=== PATIENT | female | born 1950 | race Caucasian/White ===

== ENCOUNTER 2023-11-05 06:20 | Inpatient (IN) | payer OTHER ==
[2023-11-05] VITALS (13 sets, daily range): BP systolic 103–127; BP diastolic 56–71; PULSE 68–94; RESP 16–18; TEMP 97.2–98.2; O2SAT 90–100
[~2023-11-05] VITALS: Ht 170.2 cm; Wt 90.0 kg
[~2023-11-05 06:20] MED LIST: ATEN50TA80 PO; ATO40T PO; BUPR-133 PO; CHOLCAP4 PO; HYDR25TA5 PO; LAMO150T26 PO; MULT-1018 OR; NUTRTAB41 OR; POTA1TAB61 PO; VITA400T4 PO
[2023-11-05] MEDS: TRANEXAMIC ACID 20 ML ONE (06:33)
[2023-11-05] MEDS: ceFAZolin 2 GM/D5W50ml 50 ML IV ONE (06:39)
[2023-11-05] MEDS: TETRACAINE 1% INJ 2 ML VIAL IJ ONE (06:54)
[2023-11-05] MEDS ORDERED: MIDAZOLAM HCL 2MG/2ML 2ml VIAL (1mg/ml) ONE (07:09)
[2023-11-05] MEDS ORDERED: fentaNYL CITRATE 100 MCG/2 ML VL ONE (07:09)
[2023-11-05] MEDS ORDERED: KETAMINE 50mg/ML 1ml syringe ONE ×2 (07:09→07:50)
[2023-11-05] MEDS ORDERED: GLYCOPYRROLATE 0.2 MG/ML 1ML VIAL ONE (07:11)
[2023-11-05] MEDS ORDERED: KETOROLAC TROMETH 30 MG/ML 1ML VIAL ONE ×2 (07:11→08:09)
[2023-11-05] MEDS ORDERED: ONDANSETRON HCL 4 MG/2 ML VIAL ONE (07:11)
[2023-11-05] MEDS ORDERED: ePHEDrine SULFATE 50 MG/ML AMP ONE (07:11)
[2023-11-05] MEDS ORDERED: MORPHINE SULF PF 5 MG/10 ML VIAL ONE (07:12)
[2023-11-05] MEDS ORDERED: DexAMETHasone SOD PHOS 10MG/1ML VIAL INJ ONE (08:09)
[2023-11-05] MEDS ORDERED: PROPOFOL 10 MG/ML 20 ML IV ONE (08:09)
[2023-11-05] MEDS: VANCOMYCIN HCL 1000 MG VL ONE (08:14)
[2023-11-05] MEDS ORDERED: diphenhdrAMINE HCL 50 MG/1 ML VL IV PRN (09:45)
[2023-11-05] MEDS ORDERED: NALOXONE HCL 0.4 MG/ML VIAL IV PRN (09:45)
[2023-11-05] MEDS ORDERED: ONDANSETRON HCL 4 MG/2 ML VIAL IV PRN (09:45)
[2023-11-05] MEDS ORDERED: DexAMETHasone SOD PHOS 10MG/1ML VIAL INJ IV PRN (09:45)
[2023-11-05] MEDS ORDERED: BISACODYL 5 MG EC TAB PO PRN (10:15)
[2023-11-05] MEDS: LACTATED RINGER'S 1,000 ML IV SCH (10:15)
[2023-11-05] MEDS ORDERED: NITROGLYCERIN 0.4 MG SL TAB SL PRN (10:15)
[2023-11-05] MEDS: ceFAZolin 1GM/50ML 50 ML IV SCH (10:15)
[2023-11-05] MEDS ORDERED: ACETAMINOPHEN 325 MG TAB PO PRN (10:15)
[2023-11-05] MEDS: CLINDAMYCIN 600MG IV 50 ML IV SCH (12:41)
[2023-11-05] MEDS: DOCUSATE SOD 100 MG CAP PO SCH (22:18)
[2023-11-06] VITALS (17 sets, daily range): BP systolic 109–137; BP diastolic 60–82; PULSE 65–90; RESP 15–22; TEMP 97.5–98; O2SAT 91–100
[2023-11-06] MEDS: KETOROLAC TROMETH 30 MG/ML 1ML VIAL IV PRN (02:41)
[2023-11-06 06:38] LABS: Hemoglobin 10.9 g/dL (12.2-16.2)
[2023-11-06] MEDS: HYDROcodone-ACET 5/325MG TAB PO PRN (08:39)
[2023-11-06] MEDS: ENOXAPARIN SOD 40 MG/0.4 ML SYRINGE SC SCH (09:56)
[2023-11-06] MEDS: oxyCODONE ER 10 MG TAB PO SCH (09:56)
[2023-11-06] MEDS: MORPHINE SULFATE INJ 2 MG/ml SYRG IV PRN (18:12)
[2023-11-07] VITALS (7 sets, daily range): BP systolic 123–133; BP diastolic 66–81; PULSE 72–126; RESP 16–66; TEMP 36.7; O2SAT 94–100
[2023-11-07 05:28] LABS: Hematocrit 30.3 % (36.0-46.0); Hemoglobin 10.3 g/dL (12.2-16.2)
[2023-11-07] MEDS: PNEUMOCOCCAL VACC POLYS 25 MCG/0.5 ML VIAL IM ONE (13:30)
[2023-11-07] MEDS ORDERED: HYDR-4902 PO (14:49)
[2023-11-07] MEDS ORDERED: RIVA10TA PO (14:49)
[2023-11-07] MEDS ORDERED: SENN-105 PO (14:49)
[2023-11-07] MEDS ORDERED: NALO4SPR2 (14:51)
[2023-11-07] MEDS ORDERED: SENNA 8.6 MG TAB PO SCH (22:00)
== END 2023-11-07 17:17 | disposition home health service (06) | DRG 470 ==
LOC: SUR 06:20 → TELE 10:04 → TELE-CENTR 11:40
PROVIDERS: ADMIT Orthopaedic Surgery; ATTEND Hospitalist
PROC: 0SRC0J9 Replacement of Right Knee Joint with Synthetic Substitute, Cemented, Open Approach (ICD-10-PCS; principal; 2023-11-05 07:28)
DX: M17.0 Bilateral primary osteoarthritis of knee (principal); Z68.31 Body mass index [BMI] 31.0-31.9, adult; E66.9 Obesity, unspecified; F32.9 Major depressive disorder, single episode, unspecified; E78.00 Pure hypercholesterolemia, unspecified; Z82.49 Family history of ischemic heart disease and other diseases of the circulatory system; Z82.0 Family history of epilepsy and other diseases of the nervous system; Z79.891 Long term (current) use of opiate analgesic; Z79.899 Other long term (current) drug therapy
CPT/HCPCS: 36415; 73562; 85014; 85018; 86850; 86900; 86901; 97110; 97116; 97163; 97530; G0378; J1100; J1885; J2250; J2405; J2704; J3490

== ENCOUNTER 2024-08-10 10:12 | Inpatient (IN) | payer OTHER ==
[~2024-08-10] VITALS: Ht 165.1 cm; Wt 84.5 kg
[2024-08-10] VITALS (10 sets, daily range): BP systolic 108–134; BP diastolic 71–89; PULSE 67–78; RESP 16–19; TEMP 97.5–97.8; O2SAT 90–97
[2024-08-10] MEDS: TETRACAINE 1% INJ 2 ML VIAL IJ ONE (10:00)
[~2024-08-10 10:12] MED LIST changes: -ATO40T PO; +ATOR-507 PO; +DexAMETHasone SOD PHOS 10MG/1ML VIAL INJ ONE; +LIDOCAINE 1% INJ PF 5ML AMP ONE; +MIDAZOLAM HCL 2MG/2ML 2ml VIAL (1mg/ml) ONE; +MORPHINE SULF PF 5 MG/10 ML VIAL ONE; +ONDANSETRON HCL 4 MG/2 ML VIAL ONE; +POTA-215 PO; -POTA1TAB61 PO; +PROPOFOL 10 MG/ML 20 ML IV ONE; +SODIUM CHLORIDE LOCK 10 ML ONE; -VITA400T4 PO; +fentaNYL CITRATE 100 MCG/2 ML VL ONE
[2024-08-10] MEDS: TRANEXAMIC ACID 20 ML ONE (10:32)
[2024-08-10] MEDS: ceFAZolin 2 GM/D5W100ml 100 ML IV ONE (11:41)
[2024-08-10] MEDS: CEFEPIME 1GM/ 50ML 50 ML IV ONE (11:41)
[2024-08-10] MEDS: ROPIVACAINE 0.5% (5MG/ML) 20ML AMPULE IJ ONE ×2 (12:20→13:36)
[2024-08-10] MEDS: EPINEPHrine HCL 1 MG/1 ML AMP ONE (12:20)
[2024-08-10] MEDS: VANCOMYCIN HCL 1000 MG VL ONE (12:20)
[2024-08-10] MEDS ORDERED: PROPOFOL 10 MG/ML 20 ML IV ONE (12:45)
[2024-08-10] MEDS: METOCLOPRAMIDE HCL 5MG/ml INJ 2ml VIAL IV ONE (13:15)
[2024-08-10] MEDS ORDERED: NALOXONE HCL 0.4 MG/ML VIAL IV PRN (13:15)
[2024-08-10] MEDS ORDERED: HYDROmorphone HCL 2 MG/ML VL/or syr IV PRN ×2 (13:15)
[2024-08-10] MEDS ORDERED: diphenhdrAMINE HCL 50 MG/1 ML VL IV PRN (13:15)
[2024-08-10] MEDS: KETOROLAC TROMETH 30 MG/ML 1ML VIAL IV ONE (13:15)
[2024-08-10] MEDS ORDERED: fentaNYL CITRATE 100 MCG/2 ML VL IV PRN (13:15)
[2024-08-10] MEDS ORDERED: MORPHINE SULFATE INJ 2 MG/ml SYRG IV PRN (13:15)
[2024-08-10] MEDS ORDERED: oxyCODONE HCL 5MG TAB PO PRN ×2 (13:30)
[2024-08-10] MEDS ORDERED: ACETAMINOPHEN 325 MG TAB PO PRN (13:30)
--- NOTE | 2024-08-10 13:34 | DVHOP2 ---
Operative Report - 2 Report Details Date: 08/10/24 Preop Diagnosis: Left knee degenerative arthritis Postop Diagnosis: Same Surgeon: Zulema Hurley MD Psychological Science Professor: Katrin PERDUE Anesthesiologist: Unruly Anesthesia: Local, Regional Drains: Juan Carlos closed wound suction Implant: DonJoy in power knee size eight femur PS, size seven tibial base plate, size 12 polyethylene, size 29 patella Consent: The patient was informed of the risks and benefits of the procedure. These include but are not limited to complications of anesthesia, postoperative infection, incomplete relief of symptoms, recurrence of symptoms, damage to blood vessels, nerves and tendons, deep venous thrombosis, pulmonary embolism and possible need for repeat surgery in the future. Complications: None Estimated Blood Loss: 75 cc Fluids: See anesthesia record Findings: Varus deformity, osteophytes, denuded cartilage and eburnated bone Indications for Surgery: Left knee degenerative arthritis with severe pain and functional impairment despite nonoperative Name of Procedure Performed Left total knee arthroplasty Procedure Details Procedure Details: The patient was brought to the operating room and placed on the table in the supine position after being given spinal anesthetic with adequate analgesia obtained. Surgical timeout was performed verifying patient, laterality and procedure Preop patient received IV IV Ancef, cefepime and IV tranexamic acid. Tourniquet was applied to the lower extremity. Extremity was elevated, exsanguinated Esmarch, and tourniquet inflated. Lower extremity was prepped and draped in sterile fashion. Midline incision was made followed by medial arthrotomy. I exposed the anterior medial and lateral tibial plateau and the anterior distal femur. Bovie and aqua mantis were used for hemostasis. I excised the anterior meniscal tissue with Bovie. [ I excised the anterior cruciate ligament with Bovie.] I excised a portion of the fat pad with Bovie. The patella was everted and the knee flexed. I drilled the distal femur and suctioned the hole to reduce the risk of fat emboli. I inserted intramedullary guide with 5 degree valgus setting. I pinned the distal femoral cutting block anteriorly. Intramedullary nataly was removed. Distal femoral cut was made and the block removed. I brought my attention to the tibia setting up the external cutting jig for the tibia paying attention to slope, rotation and varus valgus alignment. I set the depth and pinned the block. I used the external alignment nataly to aid in checking alignment. Bone cut was made and bone removed releasing soft tissue attachments with Bovie. Cutting block removed. I then checked the extension gap and deemed adequate and removed the femur and tibia pins. I flexed the knee and applied the femoral sizing guide to the femur. I checked the size and external rotation setting at 90 degrees to Whitesides line and checking the epicondylar axis. I drilled the holes then removed the sizing guide and pin. I then tapped on the 4 in 1 cutting block and checked with the steve wing anteriorly to make sure that I would not notch then pinned the block. Cuts were made and the block and pins were removed. Bone was removed with curved osteotome. I used a rongeur to remove any remaining osteophytes at the femur and tibia. I then used a lamina loss mitigation specialist to open up the back alternating between the medial and lateral side. Any remaining meniscal tissue was excised with scalpel. I used curved osteotome, curette and rongeur to remove any post erior osteophytes. [I injected a total of 20 cc of 0.5% ropivacaine into the posterior capsule to facilitate the planned adductor block.] I prophylactically coagulated with aqua mantis. I then applied the template for the box cut which was pinned. Box cut made and bone removed. Template and pins removed I then tapped on the femoral trial. I then brought my attention back to the tibia sizing it. I used the external alignment nataly to make sure that rotation and alignment were good. I made a Bovie lucinda at the tibial tray lucinda identifying rotation for later use. I pinned the tray and used the reamer and keel punch. I tried various tibial polytrials until I was satisfied. [I then brought my attention to the patella. I sequentially dissected soft tissue with Bovie. I checked the thickness with caliper. I set the appropriate depth of cut on the cutting guide. I attached the cutting guide made my cut. I then sized the patella and made my drill holes. I then placed the patella trial with appropriate depth based on overall precut thickness. ] The patella tracked nicely without thumb pressure. I removed the trials. The implants were brought into the field while bone preparation was started. I used both normal saline irrigation and the CarboJet to prepare the bone. Once cement was ready I applied cement to the tibial implant and tibial bone tapped it on and removed excess cement in usual fashion. In similar fashion I tapped on the femoral implant. I inserted the trial polyethylene and brought the knee into 30 degrees flexion. [I then applied the patella implant in similar fashion holding pressure with the pressurization device.] I irrigated with xperience irrigant. Once cement cured, I checked stability and range of motion as well as patella tracking. tourniquet was released and hemostasis maintained with aqua mantis. I inserted the polyethylene and again checked stability. I used a 2 grams of vancomycin half of which was placed deep and half superficial. I repaired the extensor mechanism with the knee in flexion with #1 Ethibond interrupted [id number]. Deep subcutaneous tissue was closed with 0 Vicryl. Superf icial subcutaneous tissue was closed with 2-0 vicryl interrupted. Skin was closed with samson. I then applied the [juan carlos closed wound suction]. Patient tolerated the procedure well and was brought to recovery room in stable condition. Condition Stable Disposition Still a Patient ZULEMA HURLEY MD Aug 10, 2024 13:34
[2024-08-10] MEDS ORDERED: ceFAZolin 2 GM/D5W50ml 50 ML IV SCH (14:00)
--- NOTE | 2024-08-10 14:37 | DVH ---
CLINICAL INFORMATION: Postop left total knee arthroplasty. TECHNIQUE: 2 views of the left knee were obtained. COMPARISON: No prior imaging of the left knee was available for comparison at the time of dictation. FINDINGS: Postsurgical changes of left total knee arthroplasty with cemented femoral and tibial compo nents. The prosthesis is in satisfactory alignment and position. Soft tissue swelling and gas within the soft tissues adjacent to the surgical site consistent with recent postoperative changes. Cutaneou s samson overlie the anterior aspect of the left knee. IMPRESSION: Postsurgical changes of left total knee arthroplasty in satisfactory alignment and position as descri bed above.
[2024-08-10] MEDS: D5W/LACTATED RINGERS 1,000 ML IV SCH (17:00)
[2024-08-10] MEDS: ACETAMINOPHEN 325 MG TAB PO SCH (18:26)
[2024-08-10] MEDS: KETOROLAC TROMETH 30 MG/ML 1ML VIAL IV SCH (18:26)
[2024-08-10] MEDS: ceFAZolin 2 GM/D5W50ml 50 ML IV SCH (20:25)
[2024-08-10] MEDS: ATORVASTATIN 20 MG TAB PO SCH (21:00)
[2024-08-10] MEDS: PREGABALIN 25 MG CAP PO SCH (21:00)
[2024-08-11] VITALS (15 sets, daily range): BP systolic 91–146; BP diastolic 59–82; PULSE 60–104; RESP 15–19; TEMP 97.7–98.3; O2SAT 74–99
[2024-08-11 09:34] LABS: Basophils # (auto) 0 10 ^3/uL (0-0.2); Basophils % (auto) 0.2 % (0.0-2.0); Eosinophils # (auto) 0 10 ^3/uL (0-0.8); Eosinophils % (auto) 0.2 % (0.0-7.0); Hematocrit 39.1 % (36.0-46.0); Hemoglobin 13.4 g/dL (12.2-16.2); Lymphocytes # (auto) 0.9 10 ^3/uL (0.4-5.4); Lymphocytes % (auto) 13.9 % (10.0-50.0); Mean Corpuscular Hemoglobin 30.8 pg (28.0-32.0); Mean Corpuscular Hgb Conc. 34.2 g/dL (32.0-36.0); Mean Corpuscular Volume 90.1 fL (80.0-100.0); Monocytes # (auto) 0.5 10 ^3/uL (0-1.3); Monocytes % (auto) 7.9 % (0.0-12.0); Neutrophils # (auto) 4.9 10 ^3/uL (1.6-8.6); Neutrophils % (auto) 77.8 % (37.0-80.0); Platelet Count (auto) 206 10^3/uL (140-450); Red Blood Cells 4.34 10^6/uL (4.0-5.20); Red Cell Distribution Width 12.9 % (11.8-14.3); White Blood Cell 6.3 10^3/uL (4.4-10.8)
[2024-08-11 09:40] LABS: Anion Gap 4 (5-15); Carbon Dioxide 32 mmol/L (20-31); Chloride 101 mmol/L (98-107); Potassium 4.1 mmol/L (3.5-5.1); Sodium 137 mmol/L (136-145)
[2024-08-11 09:41] LABS: Calcium 9.6 mg/dL (8.7-10.4)
[2024-08-11 09:46] LABS: BUN/Creatinine Ratio 13.1 (10.0-20.0); Blood Urea Nitrogen 13 mg/dL (9-23); Glucose 187 mg/dL (74-106)
[2024-08-11] MEDS ORDERED: LAMOTRIGINE 150 MG PO SCH (10:00)
[2024-08-11] MEDS ORDERED: ATENOLOL 50 MG PO SCH (10:00)
[2024-08-11] MEDS ORDERED: POTASSIUM CHLORIDE 10 MEQ PO SCH (10:00)
[2024-08-11] MEDS ORDERED: PATIENTS OWN MEDICATION (Atorvastatin Calcium (Lipitor) 40 MG) PO SCH (10:00)
[2024-08-11] MEDS: lamoTRIgine 100 MG TAB PO SCH (10:10)
[2024-08-11] MEDS: ASPirin 81 mg TAB PO SCH (10:11)
[2024-08-11] MEDS: ATENOLOL 25 MG TAB PO SCH (10:11)
[2024-08-11] MEDS: POTASSIUM CHL 10 Meq TABLET PO SCH (10:12)
[2024-08-11] MEDS: hydroCHLOROthiazide 25 MG TAB PO SCH (10:12)
--- NOTE | 2024-08-11 13:23 | DVHINCON2 ---
Date Seen: Aug 11, 2024 Referring Physician Orthopedic surgeon. Reason for Consultation Medical management. History of Present Illness 74-year-old female with a known history of hypertension, dyslipidemia, previous history of right coronary arthroplasty, with status post total abdominal hy sterectomy, bilateral breast reduction surgery, brought in for elective surgery for left knee degenerative joint disease . Patient denies any known cardiac history, does have known history of hypertension dyslipidemia. Currently complaining of minimal pain in the left knee has not walked with the physical therapy yet. Past Medical History Hypertension Dyslipidemia Past Surgical History Bilateral breast reduction surgery Total hysterectomy Right total knee arthroplasty Bilateral foot surgery multiple Now status post left total knee arthroplasty Family History: Cardiovascular disease G8 FATHER FH: Parkinson's disease G8 MOTHER Allergies: Coded Allergies: NO KNOWN ALLERGIES (Unverified , 08/06/24) Home Meds Reported Medications Cholecalciferol (D3-50) 50,000 Unit Cap, 68226 UNIT PO Q7D, CAP 10/30/23 Nutritional Supplements (Estroven) Tab, 1 TAB OR DAILY, TAB 10/30/23 Multiple Vitamin (Multivitamins) Tab, 1 TAB OR DAILY, TAB 10/30/23 Lamotrigine (Lamotrigine) 150 Mg Tab, 150 MG PO DAILY, TAB 10/30/23 Bupropion Hcl (Bupropion Hcl Er) 150 Mg Tab, 150 MG PO BID, TAB 10/30/23 Potassium Chloride (Klor-Con M10) 10 Meq Tab, 10 MEQ PO DAILY, TAB 10/30/23 Hctz (Hydrochlorothiazide) 25 Mg Tab, 25 MG PO DAILY, TAB 10/30/23 Atorvastatin Calcium (Lipitor) 40 Mg Tab, 40 MG PO DAILY, TAB 10/30/23 Atenolol (Tenormin) 50 Mg Tab, 50 MG PO DAILY, TAB 10/30/23 Current Medications Current Medications Medications (Trade) Dose Ordered Sig/Ayanna Route PRN Reason Start Time Stop Time Status Last Admin Hydrochlorothiazide (hydroCHLOROthiazide TABLET) 25 mg DAILY PO 08/11/24 10:00 08/11/24 10:12 Patient Own Medication 50 mg DAILY PO 08/11/24 10:00 Cancel Patient Own Medication 40 mg DAILY PO 08/11/24 10:00 Cancel Patient Own Medication 150 mg BID PO 08/10/24 22:00 08/11/24 10:12 Patient Own Medication 150 mg DAILY PO 08/11/24 10:00 08/10/24 14:00 DC Patient Own Medication 10 meq DAILY PO 08/11/24 10:00 08/10/24 14:27 DC Dextrose/Lactated Ringer's 1,000 ml @ 100 mls/hr Q10H IV 08/10/24 13:30 08/11/24 01:40 Acetaminophen (Tylenol Tablet) 650 mg Q4HP PRN PO MILD PAIN (1-3 PAIN SCALE) 08/10/24 13:30 Cefazolin Sodium/ Dextrose 50 ml @ 50 mls/hr Q8HR IV 08/10/24 14:00 08/10/24 15:14 DC Acetaminophen (Tylenol Tablet) 650 mg Q6HR PO 08/10/24 18:00 08/11/24 12:07 Ketorolac Tromethamine (Toradol Injection) 15 mg Q6HR IV 08/10/24 18:00 08/15/24 17:59 08/11/24 12:06 Pregabalin (Lyrica Capsule) 50 mg BID PO 08/10/24 22:00 08/11/24 10:10 Oxycodone HCl 5 mg Q4HP PRN PO MODERATE PAIN (4-6 PAIN SCALE) 08/10/24 13:30 Oxycodone HCl 10 mg Q4HP PRN PO SEVERE PAIN (7-10 PAIN SCALE) 08/10/24 13:30 Aspirin 81 mg BID PO 08/11/24 10:00 08/11/24 10:11 Atenolol (Tenormin Tablet) 50 mg DAILY PO 08/11/24 10:00 08/11/24 10:11 Atorvastatin Calcium (Lipitor) 40 mg HS PO 08/10/24 22:00 08/10/24 21:00 Potassium Chloride (Klor-Con Tablet) 10 meq DAILY PO 08/11/24 10:00 08/11/24 10:12 Lamotrigine (LaMICtal TABLET) 150 mg DAILY PO 08/11/24 10:00 08/11/24 10:10 Cefazolin Sodium/ Dextrose 50 ml @ 50 mls/hr Q8H IV 08/10/24 20:00 08/11/24 04:59 DC 08/11/24 03:24 Review of Systems 12 review of system were negative except mentioned above. 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2 0.0-7.0 % Basophils (%) (Auto) 0.2 0.0-2.0 % Neutrophils # (Auto) 4.9 1.6-8.6 10 ^3/uL Lymphocytes # (Auto) 0.9 0.4-5.4 10 ^3/uL Monocytes # (Auto) 0.5 0-1.3 10 ^3/uL Eosinophils # (Auto) 0 0-0.8 10 ^3/uL Basophils # (Auto) 0 0-0.2 10 ^3/uL Nucleated Red Blood Cells 0.0 % Sodium Level 137 136-145 mmol/L Potassium Level 4.1 3.5-5.1 mmol/L Chloride Level 101 98-107 mmol/L Carbon Dioxide Level 32 H 20-31 mmol/L Anion Gap 4 L 5-15 Blood Urea Nitrogen 13 9-23 mg/dL Creatinine 0.99 0.550-1.02 mg/dL Glomerular Filtration Rate Calc 60 >90 mL/min BUN/Creatinine Ratio 13.1 10.0-20.0 Serum Glucose 187 H 74-106 mg/dL Calcium Level 9.6 8.7-10.4 mg/dL Assessment 73-year-old female with a known history of hypertension, dyslipidemia who had elective surgery for left knee degenerative joint disease status post left total knee arthroplasty. 1. Hypertension controlled 2. Dyslipidemia 3. Status post left total knee arthroplasty for DJD of left knee postop day one. -continue pain meds as needed, PT evaluation and treatment -resume home medications. -discharge plan per Orthopedics. Plan discussed with: Patient, Other Date of Service: Aug 11, 2024 Billing Provider: ZAKIYA MONROY MD Common Visit Codes: NOT BILLABLE ZAKIYA MONROY MD Aug 11, 2024 13:23
--- NOTE | 2024-08-11 15:16 | DVHDS2 ---
Discharge Summary Date of Admission Aug 10, 2024 at 13:28 Date of Discharge: Aug 11, 2024 Labs/Diagnostic Data: Laboratory Results Test 08/11/24 09:04 White Blood Count 6.3 10^3/uL (4.4-10.8) Red Blood Count 4.34 10^6/uL (4.0-5.20) Hemoglobin 13.4 g/dL (12.2-16.2) Hematocrit 39.1 % (36.0-46.0) Mean Corpuscular Volume 90.1 fL (80.0-100.0) Mean Corpuscular Hemoglobin 30.8 pg (28.0-32.0) Mean Corpuscular Hemoglobin Concent 34.2 g/dL (32.0-36.0) Red Cell Distribution Width 12.9 % (11.8-14.3) Platelet Count 206 10^3/uL (140-450) Mean Platelet Volume 6.5 fL (6.9-10.8) Neutrophils (%) (Auto) 77.8 % (37.0-80.0) Lymphocytes (%) (Auto) 13.9 % (10.0-50.0) Monocytes (%) (Auto) 7.9 % (0.0-12.0) Eosinophils (%) (Auto) 0.2 % (0.0-7.0) Basophils (%) (Auto) 0.2 % (0.0-2.0) Neutrophils # (Auto) 4.9 10 ^3/uL (1.6-8.6) Lymphocytes # (Auto) 0.9 10 ^3/uL (0.4-5.4) Monocytes # (Auto) 0.5 10 ^3/uL (0-1.3) Eosinophils # (Auto) 0 10 ^3/uL (0-0.8) Basophils # (Auto) 0 10 ^3/uL (0-0.2) Nucleated Red Blood Cells 0.0 % Sodium Level 137 mmol/L (136-145) Potassium Level 4.1 mmol/L (3.5-5.1) Chloride Level 101 mmol/L (98-107) Carbon Dioxide Level 32 mmol/L (20-31) Anion Gap 4 (5-15) Blood Urea Nitrogen 13 mg/dL (9-23) Creatinine 0.99 mg/dL (0.550-1.02) Glomerular Filtration Rate Calc 60 mL/min (>90) BUN/Creatinine Ratio 13.1 (10.0-20.0) Serum Glucose 187 mg/dL (74-106) Calcium Level 9.6 mg/dL (8.7-10.4) Other Laboratory Tests 08/11/24 09:04 Brief Hx & Hospital Course: Patient was brought to the hospital yesterday to undergo a left total knee arthroplasty. She tolerated the procedure well without complications and was kept overnight for postoperative observation. She has remained medically stable denying any overnight events and reports that she was able to get up and walk with the help of physical therapy and her walker and was able to get down the rai around the nurses station and back to her room with only mild pain. Patient is otherwise feeling well denying any complaints or concerns during my evaluation would like to go home. Condition at Discharge: Stable Final Diagnosis/Problems List Same Discharge Disposition: Home Discharge Instruct/Medications Diet: Regular Activity: See Comment Activity comment: Advised patient to remain weight-bearing as tolerated with the assistance of a walker Follow Up/Referral: Patient instructed to follow up with our office in 10-14 days. Medications: Rx sent via our outpatient EMR system Discharge Statement: "Patient was advised to return to the ER or call 911 if any headaches, dizziness, shortness of breath, chest pain, abdominal pain, bleeding, fevers, or worsening of medical condition. Patient was counseled about treatment plan, medications, possible side effects, patientverbalized understanding. All questions were answered to the best of my ability. This discharge took greater then 30 minutes in planning, reviewing documentation, counseling the patient, and discussing with other team members." ASSESSMENT ASSESSMENT Assessment Same MARIFER SCOTT Aug 11, 2024 15:16
--- NOTE | 2024-08-11 15:18 | DVHPN2 ---
Progress Note - Dictate Date Seen: Aug 11, 2024 Medical Necessity Reason Pt with a Central, PICC or Fol: No Subjective Patient was lying comfortably in bed during my evaluation reports some postoperative knee pain that is being well managed with the help of pain medication. Patient reports that she was able to get up and walk with the help of physical therapy and her walker and was able to get down the rai around the nurses station and back to her bed with only mild pain. Patient is otherwise feeling well denying any other complaint or concern during my evaluation and would like to go home. vital signs Vital Sign Date Time Temp Pulse Resp B/P (MAP) Pulse Ox O2 Delivery O2 Flow Rate FiO2 08/11/24 13:22 98.3 72 19 127/82 (97) 91 98.3 08/11/24 08:00 Room Air* 0 21 Total Intake and Output 08/10/24 08/10/24 08/11/24 15:00 23:00 07:00 Intake Total 470 ml 50 ml 1260 ml Balance 470 ml 50 ml 1260 ml medications Current Medications Medications Dose Ordered Sig/Ayanna Route Start Time Stop Time Status Last Admin Dose Admin Diphenhydramine HCl 25 mg Q4HP PRN IV 08/10/24 13:15 Hydrochlorothiazide 25 mg DAILY PO 08/11/24 10:00 08/11/24 10:12 25 MG Patient Own Medication 50 mg DAILY PO 08/11/24 10:00 Cancel Patient Own Medication 40 mg DAILY PO 08/11/24 10:00 Cancel Patient Own Medication 150 mg BID PO 08/10/24 22:00 08/11/24 10:12 150 MG Dextrose/Lactated Ringer's 1,000 ml @ 100 mls/hr Q10H IV 08/10/24 13:30 08/11/24 01:40 100 MLS/HR Acetaminophen 650 mg Q4HP PRN PO 08/10/24 13:30 Acetaminophen 650 mg Q6HR PO 08/10/24 18:00 08/11/24 12:07 650 MG Ketorolac Tromethamine 15 mg Q6HR IV 08/10/24 18:00 08/15/24 17:59 08/11/24 12:06 15 MG Pregabalin 50 mg BID PO 08/10/24 22:00 08/11/24 10:10 50 MG Oxycodone HCl 5 mg Q4HP PRN PO 08/10/24 13:30 Oxycodone HCl 10 mg Q4HP PRN PO 08/10/24 13:30 Aspirin 81 mg BID PO 08/11/24 10:00 08/11/24 10:11 81 MG Atenolol 50 mg DAILY PO 08/11/24 10:00 08/11/24 10:11 50 MG Atorvastatin Calcium 40 mg HS PO 08/10/24 22:00 08/10/24 21:00 40 MG Potassium Chloride 10 meq DAILY PO 08/11/24 10:00 08/11/24 10:12 10 MEQ Lamotrigine 150 mg DAILY PO 08/11/24 10:00 08/11/24 10:10 150 MG objective A&O x4 in no acute distress Knee range of motion grossly limited with pain on movement Kaya dressing clean, dry, intact, and maintaining suction No distal edema or calf tenderness to palpation Neurovascularly intact with cap refill less than 2 seconds laboratory and microbiology Laboratory Tests 08/11/24 09:04 Test 08/11/24 09:04 Range/Units Serum Glucose 187 H 74-106 mg/dL Assessment/Plan Patient to be discharged home and advised to remain weight-bearing as tolerated with the assistance of a walker. I instructed the patient to follow up with our office in 10-14 days for her 1st postoperative evaluation and to maintain her dressings clean, dry, intact, and maintaining suction. I also instructed the patient to call our office if she has any questions or concerns. Rx sent via our outpatient EMR system. Plan discussed with: Patient MARIFER SCOTT Aug 11, 2024 15:18
== END 2024-08-11 17:55 | disposition home or self-care (01) | DRG 470 ==
LOC: SUR 10:12 → TELE 13:28 → TELE-CENTR 15:49
PROVIDERS: ADMIT Orthopaedic Surgery; ATTEND Internal Medicine
PROC: 0SRD0J9 Replacement of Left Knee Joint with Synthetic Substitute, Cemented, Open Approach (ICD-10-PCS; principal; 2024-08-10 11:41)
DX: M17.12 Unilateral primary osteoarthritis, left knee (principal); E78.5 Hyperlipidemia, unspecified; I10 Essential (primary) hypertension; Z82.49 Family history of ischemic heart disease and other diseases of the circulatory system; Z82.0 Family history of epilepsy and other diseases of the nervous system; Z90.710 Acquired absence of both cervix and uterus
CPT/HCPCS: 36415; 73562; 80048; 85025; 86850; 86900; 86901; 97162; G0378; J0171; J1100; J1885; J2250; J2405; J2704